=== PATIENT | female | born 1945 | race African-American/Black ===

== ENCOUNTER 2016-08-16 12:55 | Emergency (ER) | payer MEDICARE ==
[~2016-08-16] VITALS: Ht 160 cm; Wt 93.4 kg
[~2016-08-16 12:55] MED LIST: NAPH15DR60 OP
--- NOTE | 2016-08-16 13:41 | PHYS DOC ---
Past Medical History Past Medical History: Hypertension Past Surgical History: Hysterectomy, Tonsillectomy Alcohol Use: None Drug Use: None Adult General Chief Complaint Chief Complaint: FOOT INJURY PAIN [facility] HPI Patient is a 70 year old female presents to the emergency department stating that she has a bunion on her left foot that is red swollen and very tender. She states that it started Tuesday morning. She denies wearing any tight fitting shoes. She denies being on her feet for long period of time. Patient states that the pain goes into the first 2 toes she states that she has taken ibuprofen at home for the pain and discomfort last 2 days with no relief. Patient does have an elevated blood pressure here in the emergency department. She states that she's had a history of high blood pressure that she has been off of medications for a while. Patient denies SOA, chest pain, dizziness, lightheadedness, blurred vision. Review of Systems Review of Systems Constitutional: Denies fever or chills [] Eyes: Denies change in visual acuity, redness, or eye pain [] HENT: Denies nasal congestion or sore throat [] Respiratory: Denies cough or shortness of breath [] Cardiovascular: No additional information not addressed in HPI [] GI: Denies abdominal pain, nausea, vomiting, bloody stools or diarrhea [] : Denies dysuria or hematuria [] Musculoskeletal: Denies back pain. Patient with pain and swelling to the left first metatarsal Integument: Denies rash or skin lesions [] Neurologic: Denies headache, focal weakness or sensory changes [] Endocrine: Denies polyuria or polydipsia [] Current Medications Current Medications Current Medications Medications (Trade) Dose Ordered Sig/Thalia Start Time Stop Time Status Last Admin Dose Admin Acetaminophen/ Hydrocodone Bitart (Lortab 5/325) 1 tab 1X ONCE 08/16/16 13:45 08/16/16 13:46 DC 08/16/16 13:45 1 TAB Clonidine HCl (Catapres) 0.2 mg 1X ONCE 08/16/16 13:45 08/16/16 13:46 DC 08/16/16 13:45 0.2 MG Allergies Allergies Allergies Coded Allergies Type Severity Reaction Last Updated Verified codeine Adverse Reaction Intermediate HEADACHE 08/16/16 Yes Physical Exam Physical Exam Constitutional: Well developed, well nourished, no acute distress, non-toxic appearance. [] HENT: Normocephalic, atraumatic, bilateral external ears normal, oropharynx moist, no oral exudates, nose normal. [] Eyes: PERRLA, EOMI, conjunctiva normal, no discharge. [] Neck: Normal range of motion, no tenderness, supple, no stridor. [] Cardiovascular:Heart rate regular rhythm, no murmur [] Lungs & Thorax: Bilateral breath sounds clear to auscultation [] Skin: Warm, dry, no erythema, no rash. [] Back: No tenderness Extremities: Left first and second metatarsal and phalanges tenderness, no cyanosis, no clubbing, ROM intact, no edema. Patient with swelling tenderness and redness noted along the first metatarsal along the bunion area. Neurologic: Alert and oriented X 3, normal motor function, normal sensory function, no focal deficits noted. [] Psychologic: Affect normal, judgement normal, mood normal. [] Current Patient Data Vital Signs Vital Signs Date Time Temp Pulse Resp B/P (MAP) Pulse Ox O2 Delivery O2 Flow Rate FiO2 08/16/16 13:45 78 225/92 08/16/16 13:17 98.4 20 99 Room Air 98.4 Lab Values Laboratory Tests Test 08/16/16 13:55 White Blood Count 8.1 x10^3/uL (4.0-11.0) Red Blood Count 4.10 x10^6/uL (3.50-5.40) Hemoglobin 12.4 g/dL (12.0-15.5) Hematocrit 38.1 % (36.0-47.0) Mean Corpuscular Volume 93 fL (79-100) Mean Corpuscular Hemoglobin 30 pg (25-35) Mean Corpuscular Hemoglobin Concent 33 g/dL (31-37) Red Cell Distribution Width 13.6 % (11.5-14.5) Platelet Count 158 x10^3/uL (140-400) Neutrophils (%) (Auto) 71 % (31-73) Lymphocytes (%) (Auto) 21 % (24-48) L Monocytes (%) (Auto) 6 % (0-9) Eosinophils (%) (Auto) 2 % (0-3) Basophils (%) (Auto) 0 % (0-3) Neutrophils # (Auto) 5.7 x10^3uL (1.8-7.7) Lymphocytes # (Auto) 1.7 x10^3/uL (1.0-4.8) Monocytes # (Auto) 0.5 x10^3/uL (0.0-1.1) Eosinophils # (Auto) 0.1 x10^3/uL (0.0-0.7) Basophils # (Auto) 0.0 x10^3/uL (0.0-0.2) Erythrocyte Sedimentation Rate 17 (0-25) Sodium Level 147 mmol/L (136-145) H Potassium Level 3.9 mmol/L (3.5-5.1) Chloride Level 110 mmol/L (98-107) H Carbon Dioxide Level 30 mmol/L (21-32) Anion Gap 7 (6-14) Blood Urea Nitrogen 22 mg/dL (7-20) H Creatinine 1.4 mg/dL (0.6-1.0) H Estimated GFR (Cockcroft-Gault) 44.9 BUN/Creatinine Ratio 16 (6-20) Glucose Level 126 mg/dL (70-99) H Uric Acid 6.8 mg/dL (2.6-6.0) H Calcium Level 9.2 mg/dL (8.5-10.1) Total Bilirubin 0.4 mg/dL (0.2-1.0) Aspartate Amino Transferase (AST) 14 U/L (15-37) L Alanine Aminotransferase (ALT) 16 U/L (14-59) Alkaline Phosphatase 80 U/L (46-116) C-Reactive Protein, Quantitative 1.4 mg/L (0-3.3) Total Protein 7.5 g/dL (6.4-8.2) Albumin 3.6 g/dL (3.4-5.0) Albumin/Globulin Ratio 0.9 (1.0-1.7) L Laboratory Tests 08/16/16 13:55 Laboratory Tests 08/16/16 13:55 EKG EKG [] Radiology/Procedures Radiology/Procedures [][facility] [address] [place] [address] IMAGING REPORT Signed PATIENT: CHRISTOPHER ALVARADO ACCOUNT: [id number] : 1945 LOCATION: ER AGE: 70 SEX: F EXAM STATUS: REG ER ORD. PHYSICIAN: RYAN FABIAN APRN REASON: bunion pain with redness and tenderness, swelling PROCEDURE: FOOT LEFT 3V Left foot 3 views. History: Redness pain and swelling great toe 3 views were taken of the left foot. There is arthritis at the first metatarsal phalangeal joint with joint space narrowing and prominent hypertrophic change. There is focal soft tissue swelling. There is mild arthritis at the second metatarsal phalangeal joint. There is no fracture or bony destructive process. No other fracture is noted. Impression: 1. Arthritis at the first metatarsal phalangeal joint. DICTATED and SIGNED BY: VANIA TATUM MD DATE: 08/16/161425 CC: RYAN FABIAN APRN; NO PCP; NON,STAFF ~ Course & Med Decision Making Course & Med Decision Making Pertinent Labs and Imaging studies reviewed. (See chart for details) X-rays identified arthritis in the first great toe. Sedimentation rate was normal. C-reactive protein normal. Uric acid was elevated. Patient's BUN/ creatinine were elevated as well. Patient will be encouraged to follow-up with a primary care physician in regards to blood pressure. Patient will be provided with Norvasc at home for her blood pressure at this time. Patient will also be provided with hydrocodone for pain and discomfort which she was instructed will cause drowsiness do not take any be alert and oriented. He'll also be instructed to take Aleve for the pain and discomfort. Patient will be discharged home in stable condition signs and symptoms to return back to emergency department has been provided. [] Dragon Disclaimer Dragon Disclaimer This electronic medical record was generated, in whole or in part, using a voice recognition dictation system. Departure Departure Impression: Primary Impression: Gout Additional Impression: Hypertension Disposition: HOME, SELF-CARE Condition: STABLE Referrals: NO PCP (PCP) Patient Instructions: Gout, [id number], Hypertension Additional Instructions: Your x-rays identified arthritis in her toes. Your lab results identify use having gout. Aleve instructed by deskidding machine operator [id number]. Hydrocodone for severe pain and discomfort. This medication will cause drowsiness do not take any be alert and oriented. Elevation as much as possible. Follow-up with your primary care physician in regards to your elevation of your blood pressure. Monitor your blood pressure until you follow-up. Medication as prescribed. Return back to emergency department signs and symptoms of become worse. Scripts Hydrocodone/Apap 5-325 (NORCO 5-325 TABLET) 1 Each Tablet 1 TAB PO PRN Q6HRS Y for PAIN, #10 TAB 0 Refills Prov: RYAN FABIAN APRN 08/16/16 Amlodipine Besylate (NORVASC) 5 Mg Tablet 1 TAB PO DAILY, #30 TAB 5 Refills Prov: RYAN FABIAN APRN 08/16/16 Problem Qualifiers RYAN FABIAN APRN August 16, 2016 13:41
[2016-08-16] MEDS ORDERED: cloNIDine HCL 0.1 MG TABLET PO ONE (13:45)
[2016-08-16] MEDS ORDERED: HYDROcodone/APAP 5/325MG 1 TAB TABLET PO ONE (13:45)
[2016-08-16 14:07] LABS: BASO % 0 % (0-3); EOS % 2 % (0-3); HEMATOCRIT 38.1 % (36.0-47.0); HEMOGLOBIN 12.4 g/dL (12.0-15.5); LYMPH # 1.7 x10^3/uL (1.0-4.8); LYMPH % 21 % (24-48); MEAN CORPUSCULAR HEMOGLOBIN 30 pg (25-35); MEAN CORPUSCULAR HGB CONC 33 g/dL (31-37); MEAN CORPUSCULAR VOLUME 93 fL (79-100); MONO % 6 % (0-9); NEUT % 71 % (31-73); PLATELET COUNT 158 x10^3/uL (140-400); RED CELL DISTRIBUTION WIDTH 13.6 % (11.5-14.5); WHITE BLOOD COUNT 8.1 x10^3/uL (4.0-11.0)
[2016-08-16 14:19] LABS: CALCIUM 9.2 mg/dL (8.5-10.1); CREATININE 1.4 mg/dL (0.6-1.0); GFR 44.9; POTASSIUM 3.9 mmol/L (3.5-5.1)
[2016-08-16 14:25] LABS: ALBUMIN 3.6 g/dL (3.4-5.0); ALBUMIN/GLOBULIN RATIO 0.9 (1.0-1.7); C-REACTIVE PROTEIN 1.4 mg/L (0-3.3); TOTAL BILIRUBIN 0.4 mg/dL (0.2-1.0); TOTAL PROTEIN 7.5 g/dL (6.4-8.2); URIC ACID 6.8 mg/dL (2.6-6.0)
--- NOTE | 2016-08-16 14:29 | RAD ---
Left foot 3 views. History: Redness pain and swelling great toe 3 views were taken of the left foot. There is arthritis at the first metatarsal phalangeal joint with joint space narrowing and prominent hypertrophic change. There is focal soft tissue swelling. There is mild arthritis at the second metatarsal phalangeal joint. There is no fracture or bony destructive process. No other fracture is noted. Impression: 1. Arthritis at the first metatarsal phalangeal joint.
[2016-08-16] MEDS ORDERED: AMLO5TAB4 PO (15:15)
[2016-08-16] MEDS ORDERED: HYDR-971 PO (15:15)
[2016-08-16 15:30] VITALS: BP 132/79
== END 2016-08-16 15:20 | disposition home or self-care (01) ==
LOC: ER 12:55
DX: M10.9 Gout, unspecified (principal); I10 Essential (primary) hypertension; M19.90 Unspecified osteoarthritis, unspecified site; Z88.5 Allergy status to narcotic agent
CPT/HCPCS: 36415; 73630; 80053; 84550; 85027; 85651; 86140; 99285-25

== ENCOUNTER → 2016-10-04 | Outpatient (CLI) | payer MEDICARE ==
[~2016-10-04] MED LIST changes: +AMLO5TAB4 PO; +HYDR-971 PO
--- NOTE | 2016-10-04 16:38 | KCIC ---
Bone mineral density exam History: Postmenopausal, screening, adult fracture Comparison: None Findings: Bone mineral density examination utilizing DEXA was performed. Left femoral neck bone mineral density of 0.920 g/cm2 corresponds with a T score -0.2, Z score 0.5. The bone mineral density of the lumbar spine was 1.173 g/cm2 which corresponds with a T-score of 1.1, Z score 2.6. By World [employer] on Osteoporosis criteria, a T score of 0 to-1 SD is considered to be within normal limits. A T score of -1 to -2.5 SD is considered osteopenia. A T score less than -2.5 SD is considered osteoporosis Impression: 1. There is normal bone density of the lumbar spine, although could be artificially elevated due to the presence of degenerative change. There is normal bone density of the left hip. Electronically signed by: Stuart Kingston MD (10/04/2016 4:36 PM) [id number]
--- NOTE | 2016-10-04 17:07 | KCIC ---
Bilateral digital screening mammograms: Reason for examination: Routine screening. New baseline. The skin and nipples show no abnormalities. No abnormal axillary lymph nodes are seen. The breast parenchyma shows scattered fibroglandular density. (Breast density: Category B.) There are no dominant masses, suspicious calcifications or architectural distortions. Impression: No evidence of malignancy. Recommend routine screening. BI-RADS Category 1: Negative. "Our facility is accredited by the [employer] [place] [employer] Mammography Program." This patient's information has been entered into a reminder system for the patient to be notified with the results of her examination and a target date for the next mammogram. Electronically signed by: Sujey Clinton MD (10/04/2016 5:04 PM) [id number]
== END | disposition home or self-care (01) ==
LOC: KCIC DEXA 15:18
PROVIDERS: ATTEND Nurse Practitioner Family
DX: Z12.31 Encounter for screening mammogram for malignant neoplasm of breast (principal); Z13.820 Encounter for screening for osteoporosis; Z78.0 Asymptomatic menopausal state; Z87.81 Personal history of (healed) traumatic fracture
CPT/HCPCS: 77080; G0202; 77067

== ENCOUNTER 2016-10-21 09:52 | Day surgery (SDC) | payer MEDICARE ==
[~2016-10-21] VITALS: Ht 160 cm; Wt 95.3 kg
[~2016-10-21 09:52] MED LIST changes: +ALLO100T PO; +HYDROmorphone 2 MG/ML VIAL IV PRN; +IV RINGERS,LACTATED 1000ML 1,000 ML IV SCH; +LIDOCAINE 1% 1 ML SYRINGE. ID PRN; +MORPHINE SULFATE 4 MG/ML DISP.SYRIN. IV PRN; +ONDANSETRON PF 4 MG/2 ML VIAL. IV PRN; +PROCHLORPERAZINE 10 MG/2 ML VIAL. IV PRN; +RANI150C PO; +fentaNYL PF VIAL 100 MCG/2 ML VIAL IV PRN
[2016-10-21] MEDS ORDERED: ceFAZolin 2GM PREMIX 2 GM/50 ML BAG IV ONE (10:00)
[2016-10-21 10:53] LABS: CALCIUM 8.5 mg/dL (8.5-10.1); CREATININE 1.3 mg/dL (0.6-1.0); GFR 48.9; POTASSIUM 3.7 mmol/L (3.5-5.1)
[2016-10-21 10:54] LABS: BASO % 1 % (0-3); EOS % 3 % (0-3); HEMATOCRIT 36.3 % (36.0-47.0); HEMOGLOBIN 12.1 g/dL (12.0-15.5); LYMPH # 1.5 x10^3/uL (1.0-4.8); LYMPH % 29 % (24-48); MEAN CORPUSCULAR HEMOGLOBIN 31 pg (25-35); MEAN CORPUSCULAR HGB CONC 33 g/dL (31-37); MEAN CORPUSCULAR VOLUME 91 fL (79-100); MONO % 6 % (0-9); NEUT % 62 % (31-73); PLATELET COUNT 160 x10^3/uL (140-400); RED BLOOD COUNT 3.97 x10^6/uL (3.50-5.40); RED CELL DISTRIBUTION WIDTH 13.8 % (11.5-14.5); WHITE BLOOD COUNT 5.4 x10^3/uL (4.0-11.0)
[2016-10-21] MEDS ORDERED: MIDAZOLAM HCL/PF 2 MG/2 ML VIAL. ONE (11:25)
[2016-10-21] MEDS ORDERED: fentaNYL PF VIAL 100 MCG/2 ML VIAL ONE (11:25)
[2016-10-21] MEDS ORDERED: PROPOFOL 50 ML IV ONE (11:26)
[2016-10-21] MEDS ORDERED: LIDOCAINE 1% PF 30 ML VIAL. ONE (11:28)
[2016-10-21] MEDS ORDERED: BUPIVACAINE MPF 0.5% 30 ML VIAL. ONE (11:28)
[2016-10-21] MEDS ORDERED: DEXAMETHASONE SOD PHOS 4 MG/ML VIAL ONE (11:28)
[2016-10-21] MEDS ORDERED: PROPOFOL 20 ML IV ONE (12:21)
--- NOTE | 2016-10-21 12:21 | PDOC1 ---
History and Physical Date of Admission Date of Admission DATE: 10/21/16 TIME: 12:17 Identification/Chief Complaint Chief Complaint left foot pain Problems: Source Source: Chart review, Patient History of Present Illness History of Present Illness admit for obs to surgery for left foot pain, Known bunion, pain to hallux has progressed. Pain with ambulation, limiting some activities, cannot walk well HTN has been well controlled on norvasc, no recent gout attack, has been enjoying long-term Past Medical History Cardiovascular: HTN Rheumatologic: Gout Family History Family History: Hypertension Social History Smoke: No ALCOHOL: none Drugs: None Current Medications Current Medications Current Medications Ondansetron HCl (Zofran) 4 mg PRN Q6HRS PRN IV NAUSEA/VOMITING; Start 10/21/16 at 07:00; Stop 10/21/16 at 23:00 Fentanyl Citrate (Fentanyl 2ml Vial) 25 mcg PRN Q5MIN PRN IV MILD PAIN; Start 10/21/16 at 07:00; Stop 10/21/16 at 23:00 Fentanyl Citrate (Fentanyl 2ml Vial) 50 mcg PRN Q5MIN PRN IV MODERATE PAIN; Start 10/21/16 at 07:00; Stop 10/21/16 at 23:00 Morphine Sulfate 1 mg PRN Q10MIN PRN IV SEVERE PAIN; Start 10/21/16 at 07:00; Stop 10/21/16 at 23:00 Ringer's Solution 1,000 ml @ 30 mls/hr Q24H IV Last administered on 10/21/16t 10:47; Start 10/21/16 at 07:00; Stop 10/21/16 at 18:59 Lidocaine HCl 2 ml PRN 1X PRN ID PRIOR TO IV START; Start 10/21/16 at 07:00; Stop 10/21/16 at 23:00 Hydromorphone HCl (Dilaudid) 0.5 mg PRN Q10MIN PRN IV SEV PAIN, Second choice; Start 10/21/16 at 07:00; Stop 10/21/16 at 23:00 Prochlorperazine Edisylate (Compazine) 5 mg PACU PRN PRN IV NAUSEA, MRX1; Start 10/21/16 at 07:00; Stop 10/21/16 at 23:00 Cefazolin Sodium/ Dextrose 50 ml @ 100 mls/hr 1X PREOP PRN IV PRIOR TO SURGERY ; Start 10/21/16 at 08:00 Midazolam HCl (Versed) 2 mg STK-MED ONCE .ROUTE ; Start 10/21/16 at 11:25; Stop 10/21/16 at 11:26; Status DC Fentanyl Citrate (Fentanyl 2ml Vial) 100 mcg STK-MED ONCE .ROUTE ; Start at 11:25; Stop 10/21/16 at 11:26; Status DC Propofol 50 ml @ As Directed STK-MED ONCE IV ; Start 10/21/16 at 11:26; Stop 10/21 at 11:27; Status DC Lidocaine HCl 30 ml STK-MED ONCE .ROUTE Last administered on 10/21/16 11:58; Start 10/21/16 at 11:28; Stop 10/21/16 at 11:29; Status DC Bupivacaine HCl (Sensorcaine Mpf 0.5%) 30 ml STK-MED ONCE .ROUTE Last administered on 10/21/16 11:58; Start 10/21/16 at 11:28; Stop 10/21/16 at 11:29; Status DC Dexamethasone Sodium Phosphate (Decadron) 4 mg STK-MED ONCE .ROUTE ; Start at 11:28; Stop 10/21/16 at 11:29; Status DC Active Scripts Active [place] 5-325 Tablet (Acetaminophen/Hydrocodone Bitart) 1 Each Tablet 1 Tab PO PRN Q6HRS PRN Norvasc (Amlodipine Besylate) 5 Mg Tablet 1 Tab PO DAILY Reported Ranitidine Hcl 150 Mg Capsule 150 Mg PO PRN PRN Allopurinol 100 Mg Tablet 100 Mg PO DAILY Allergies Allergies: Coded Allergies: codeine (Verified Adverse Reaction, Intermediate, HEADACHE, 10/21/16) ROS General: No: Chills, Night Sweats, Fatigue, Malaise, Appetite, Other PSYCHOLOGICAL ROS: No: Anxiety, Behavioral Disorder, Concentration difficultie , Decreased libido, Depression, Disorientation, Hallucinations, Hostility, Irritablity, Memory difficulties, Mood Swings, Obsessive thoughts, Physical abuse, Sexual abuse, Sleep disturbances, Suicidal ideation, Other Respiratory: No: Cough, Hemoptysis, Orthopnea, Pleuritic Pain, Shortness of breath, SOB with excertion, Sputum Changes, Stridor, Tachypnea, Wheezing, Other Cardiovascular: No Chest Pain, No Palpitations, No Orthopnea, No Paroxysmal Noc. Dyspnea, No Edema, No Lt Headedness, No Other Gastrointestinal: No Nausea, No Vomiting, No Abdominal Pain, No Diarrhea, No Constipation, No Melena, No Hematochezia, No Other Genitourinary: No Dysuria, No Frequency, No Incontinence, No Hematuria, No Retention, No Discharge, No Urgency, No Pain, No Flank Pain, No Other, No , No , No , No , No , No , No Musculoskeletal: Yes Gait Disturbance, Yes Joint Pain, No Joint Stiffness, No Joint Swelling, No Muscle Pain, No Muscular Weakness, No Pain In:, No Swelling In:, No Other Neurological: No Behavorial Changes, No Bowel/Bladder ControlChng, No Confusion , No Dizziness, No Headaches, No Impaired Coord/balance, No Memory Loss, No Numbness/Tingling, No Seizures, No Speech Problems, No Tremors, No Visual Changes, No Weakness, No Other Skin: No Dry Skin, No Eczema, No Hair Changes, No Lumps, No Mole Changes, No Mottling, No Nail Changes, No Pruritus, No Rash, No Skin Lesion Changes, No Other, No Acne Physical Exam General: Alert, Oriented X3, Cooperative HEENT: Atraumatic, PERRLA Lungs: Clear to auscultation Heart: S1S2 Abdomen: Normal bowel sounds, Soft Extremities: No clubbing Skin: No rashes Neuro: Normal gait, Normal speech, Normal tone, Cranial nerves 3-12 NL Psych/Mental Status: Mental status NL, Mood NL Vitals Vitals Vital Signs Date Time Temp Pulse Resp B/P (MAP) Pulse Ox O2 Delivery O2 Flow Rate FiO2 10/21/16 10:28 98.2 60 98 98.2 10/21/16 10:26 20 168/80 Room Air Labs Labs Laboratory Tests Test 10/21/16 10:35 White Blood Count 5.4 x10^3/uL (4.0-11.0) Red Blood Count 3.97 x10^6/uL (3.50-5.40) Hemoglobin 12.1 g/dL (12.0-15.5) Hematocrit 36.3 % (36.0-47.0) Mean Corpuscular Volume 91 fL (79-100) Mean Corpuscular Hemoglobin 31 pg (25-35) Mean Corpuscular Hemoglobin Concent 33 g/dL (31-37) Red Cell Distribution Width 13.8 % (11.5-14.5) Platelet Count 160 x10^3/uL (140-400) Neutrophils (%) (Auto) 62 % (31-73) Lymphocytes (%) (Auto) 29 % (24-48) Monocytes (%) (Auto) 6 % (0-9) Eosinophils (%) (Auto) 3 % (0-3) Basophils (%) (Auto) 1 % (0-3) Neutrophils # (Auto) 3.3 x10^3uL (1.8-7.7) Lymphocytes # (Auto) 1.5 x10^3/uL (1.0-4.8) Monocytes # (Auto) 0.3 x10^3/uL (0.0-1.1) Eosinophils # (Auto) 0.2 x10^3/uL (0.0-0.7) Basophils # (Auto) 0.0 x10^3/uL (0.0-0.2) Sodium Level 143 mmol/L (136-145) Potassium Level 3.7 mmol/L (3.5-5.1) Chloride Level 108 mmol/L (98-107) Carbon Dioxide Level 30 mmol/L (21-32) Anion Gap 5 (6-14) Blood Urea Nitrogen 20 mg/dL (7-20) Creatinine 1.3 mg/dL (0.6-1.0) Estimated GFR (Cockcroft-Gault) 48.9 Glucose Level 88 mg/dL (70-99) Calcium Level 8.5 mg/dL (8.5-10.1) Laboratory Tests Test 10/21/16 10:35 White Blood Count 5.4 x10^3/uL (4.0-11.0) Red Blood Count 3.97 x10^6/uL (3.50-5.40) Hemoglobin 12.1 g/dL (12.0-15.5) Hematocrit 36.3 % (36.0-47.0) Mean Corpuscular Volume 91 fL (79-100) Mean Corpuscular Hemoglobin 31 pg (25-35) Mean Corpuscular Hemoglobin Concent 33 g/dL (31-37) Red Cell Distribution Width 13.8 % (11.5-14.5) Platelet Count 160 x10^3/uL (140-400) Neutrophils (%) (Auto) 62 % (31-73) Lymphocytes (%) (Auto) 29 % (24-48) Monocytes (%) (Auto) 6 % (0-9) Eosinophils (%) (Auto) 3 % (0-3) Basophils (%) (Auto) 1 % (0-3) Neutrophils # (Auto) 3.3 x10^3uL (1.8-7.7) Lymphocytes # (Auto) 1.5 x10^3/uL (1.0-4.8) Monocytes # (Auto) 0.3 x10^3/uL (0.0-1.1) Eosinophils # (Auto) 0.2 x10^3/uL (0.0-0.7) Basophils # (Auto) 0.0 x10^3/uL (0.0-0.2) Sodium Level 143 mmol/L (136-145) Potassium Level 3.7 mmol/L (3.5-5.1) Chloride Level 108 mmol/L (98-107) Carbon Dioxide Level 30 mmol/L (21-32) Anion Gap 5 (6-14) Blood Urea Nitrogen 20 mg/dL (7-20) Creatinine 1.3 mg/dL (0.6-1.0) Estimated GFR (Cockcroft-Gault) 48.9 Glucose Level 88 mg/dL (70-99) Calcium Level 8.5 mg/dL (8.5-10.1) VTE Prophylaxis Ordered VTE Prophylaxis Devices: No VTE Pharmacological Prophylaxi: Contraindicated Assessment/Plan Assessment/Plan left great toe pain, bunion and recent gout attack. Dr. 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
[2016-10-21] MEDS ORDERED: GLYCOPYRROLATE 1 MG/5 ML VIAL. ONE (12:53)
--- NOTE | 2016-10-21 13:34 | PDOC4 ---
OPERATIVE NOTE: Surgeon: Jess Pre operative diagnosis: Hallux rigidus Left foot Post operative diagnosis: Same Procedure: 1st metatarsal phalanageal joint arthrodesis left foot Anesthesia: MAC with local Hemostasis: Left ankle tourniquet at 250mmHg EBL: 5ML Materials: Allomatrix injectable putty [employer] 1cc, Mini Maxtorque 3.2 Cannulated partiall threaded screw x 2 Intraoperative findings: Note severe denuded cartilage to 1st metatarsal head and dorsal 1/2 of proximal phalanx base hallux. Dorsal osteophyte to 1st metatarsal head noted. Patient tolerated anesthesia and procedure well, transferred to PACU with VSS and VSI to left foot JENNIFER ROLLINS DPM Oct 21, 2016 13:34
[2016-10-21] MEDS ORDERED: HYDR-971 PO (14:05)
[2016-10-21] MEDS ORDERED: IBUP-1060 PO (14:06)
[2016-10-21] MEDS ORDERED: HYDROcodone/APAP 5/325MG 1 TAB TABLET PO PRN (14:30)
[2016-10-21 15:18] VITALS: BP 160/84
--- NOTE | 2016-10-21 16:14 | RAD ---
Left foot, 3 views, 10/21/2016: History: Postop arthrodesis Comparison is made to a study from 08/16/2016. Two surgical screws have been placed across the first MTP joint compatible with surgical fusion. Alignment is satisfactory. There is no evidence of a retained surgical instrument, needle or radiopaque sponge on these views.
--- NOTE | 2016-10-21 16:42 | OP ---
DATE OF SURGERY: 10/21/2016 PREOPERATIVE DIAGNOSIS: Hallux rigidus, left foot. POSTOPERATIVE DIAGNOSIS: Hallux rigidus, left foot. PROCEDURE: First metatarsophalangeal joint arthrodesis, left foot. ANESTHESIA: MAC with local. HEMOSTASIS: Left ankle tourniquet at 250 mmHg. INDICATIONS: The patient is a 70-year-old female who presented to my clinic complaining of severe chronic pain to the first metatarsophalangeal joint of the left foot. The patient states the pain has been unsuccessful to be alieved with conservative treatment of wide shoe gear, NSAIDs, ice, [id number] inserts, and radiographs were taken which showed severe first metatarsophalangeal joint narrowing of the left foot with a dorsal exostosis of the first metatarsal. The patient had positive pain with range of motion and with palpation, the patient has limited range of motion of the first metatarsophalangeal joint, left foot. Thus discussed with patient the risks, benefits, and complications of the procedure to include overcorrection, undercorrection, delayed healing, nonhealing, delayed union or nonunion of fusion site, need for further surgery, transfer lesion, shortening of toe, loss of toe range of motion, arthritis to surrounding joints, chronic regional pain syndrome, DVT, gout flare, pulmonary embolism, numbness, tingling, burning and all questions were answered. No guarantees made. The patient signed consent freely and put in chart. DESCRIPTION OF PROCEDURE: The patient was transported to the operating room via cart and placed on the operating room table in supine position. Final verification of the patient's surgery and limb was performed. IV Ancef was given to the patient preoperatively. A timeout was taken to verify the patient, surgery, and limb to be performed. IV sedation was administered per anesthesia and a Bender block was administered to the left foot consisting of a 1:1 mixture of 1% lidocaine plain and 0.5% Marcaine plain. The left foot was then prepped and draped in the usual aseptic manner and a well-padded tourniquet was placed over the left ankle. The Esmarch bandage was then used to exsanguinate the left foot and left ankle tourniquet was inflated to 250 mmHg. Attention was directed to the first ray, where a 5 cm incision was made just medial to the extensor hallucis longus tendon. This was deepened down to the level of the joint capsule and small vessels were cauterized and the neurovascular bundle was safely retracted from the incision. Next, a linear incision was made into the first metatarsal. Distal end was removed from the distal one third of the first metatarsal as well as from the base of the proximal phalanx of the hallux. At this point, noted large dorsal exostosis to the first metatarsal with severely denuded joint about 75% of the first metatarsal head and the dorsal 50% of the proximal phalanx base. Next, reamers by Data Driven Delivery System were utilized to remove any remaining deviated cartilage to solid healthy bone both to the head of the first metatarsal and to the base of the proximal phalanx. The medial eminence was also resected with a sagittal saw of the first metatarsal head. There was noted a defect to the medial aspect of the first metatarsal head and the joint was aligned to 15-20 degrees of dorsiflexion and a slight abduction. They noticed with weightbearing. The patient was in a good satisfactory alignment. Thus, 2 cross guidewires for the three 0.2 screws were then first distally. Dorsally, from the proximal phalanx base and extending proximally and plantarly through the first metatarsal and then a crossed guidewire was then placed medial proximal at the first metatarsal, extending distal dorsal to the lateral aspect of the proximal phalanx. Noted C-arm fluoroscopy to note proper alignment and next utilized Data Driven Delivery System Mini MAXTORQUE 3.2 cannulated partially threaded screw x 2. Solid fixation was achieved and the guidewires were removed and C-arm fluoroscopy was utilized to show proper alignment. Used Allomatrix Injectable Putty by Data Driven Delivery System 1 mL to fill in any gaps around the edges and the wound was copiously irrigated with sterile saline and the joint capsule was reapproximated with 2-0 Vicryl and the skin was reapproximated with 3-0 Vicryl and 4-0 nylon. A postop injection was given of 10 mL of 0.5% Marcaine plain and a postop dressing was applied with Betadine ointment, Adaptic gauze, 4 x 4s, Kerlix, and Preston bandage. The patient tolerated both anesthesia and procedure well. The tourniquet was deflated and good perfusion was noted to all digits of the left foot. The patient will have x-rays taken in the PACU and postop instructions are in the chart. JENNIFER ROLLINS DPM DR: Dheeraj JOB#: [id number] / [id number]
== END 2016-10-21 16:46 | disposition home or self-care (01) ==
LOC: SURG 09:52
PROVIDERS: ATTEND Podiatrist Foot & Ankle Surgery
DX: M20.22 Hallux rigidus, left foot (principal); I10 Essential (primary) hypertension; M19.90 Unspecified osteoarthritis, unspecified site; M10.9 Gout, unspecified; E66.9 Obesity, unspecified; Z68.37 Body mass index [BMI] 37.0-37.9, adult; Z98.41 Cataract extraction status, right eye; Z98.42 Cataract extraction status, left eye; Z87.39 Personal history of other diseases of the musculoskeletal system and connective tissue; Z90.710 Acquired absence of both cervix and uterus; Z88.6 Allergy status to analgesic agent
CPT/HCPCS: 28750; 36415; 73630; 80048; 85027; C1713; C1769; J0690; J2250; J2704; J3010; J3490; J7120; J1100

== ENCOUNTER 2017-10-06 20:40 | Emergency (ER) | payer MEDICARE ==
[2017-10-06] MEDS: DIPHTH,PERTUSS(ACELL),TET TOX 0.5 ML DISP.SYRIN. VAX IM (21:20)
== END 2017-10-06 21:35 | disposition home or self-care (01) ==
LOC: ER 20:40
DX: L03.116 Cellulitis of left lower limb (principal); I10 Essential (primary) hypertension; Z88.5 Allergy status to narcotic agent
CPT/HCPCS: 90471; 90715; 99283-25